=== PATIENT | female | born 1980 | race Caucasian/White ===

== ENCOUNTER 2017-08-16 18:33 | Emergency (ER) | payer MEDICAID ==
[2017-08-16 18:39] VITALS: PULSE 60; TEMP 97.5
--- NOTE | 2017-08-16 18:49 | EDPHY ---
H & P Stated Complaint: right 5th toe injury with deformity Source: Patient Exam Limitations: No limitations - Personal History LMP (Females 10-55): 15-21 Days Ago Current Tetanus Diphtheria and Acellular Pertussis (TDAP): Yes - Medical/Surgical History Hx Asthma: No Hx Chronic Respiratory Disease: No Hx Diabetes: No Hx Cardiac Disease: No Hx Renal Disease: No Hx Cirrhosis: No Hx Alcoholism: No Hx HIV/AIDS: No Hx Splenectomy or Spleen Trauma: No Other PMH: denies - Social History Smoking Status: Never smoked Time Seen by Provider: 08/16/17 18:49 HPI/ROS: HPI: This is a 36-year-old female presents with Chief Complaint: right 5th toe injury with deformity Location: Right 5th toe Quality: Injury Duration: 30 minutes prior to arrival Signs and Symptoms: No bleeding, no radiation, no numbness, no weakness, no tingling, no incontinence, + decreased range of motion, + deformity Timing: Acute Severity: Moderate Context: Patient was walking around her house barefoot and stepped her right little toe on the bedpost. She felt immediate pain and when she looked down she noticed that it was deviated laterally. She states that the pain has lessened, and is now disc [id number]. She was able to drive herself to an urgent care where they took an x-ray that showed a 5th proximal phalanx fracture and dislocation. Patient reports she was told that they were unable to treat her and she was to go to the emergency room. Patient drove self to the emergency room. Modifying Factors: See HPI Comment: ROS: see HPI Constitutional: No fever, no chills, no weight loss Eyes: No blurred vision Respiratory: No shortness of breath, no cough Cardiovascular: No chest pain Gastrointestinal: No nausea, no vomiting no diarrhea Genitourinary: No dysuria Extremities: No myalgias Neurologic: No weakness, no numbness Skin: No rashes Hematologic: No bruising, no bleeding MEDICAL/SURGICAL/SOCIAL HISTORY: Medical history: Generally healthy. Does not take any regular medications. 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 Tympanic membranes clear. Oropharynx clear, no exudate and moist pink mucosa. Airway patent. No lymphadenopathy. No meningismus. Cardiovascular: Normal S1/S2, regular rate, regular rhythm, without murmur rub or gallop. PULMONARY/CHEST: Symmetrical and nontender. Clear to auscultation bilaterally. Good air movement. No accessory muscle usage. ABDOMEN: Soft, nondistended, nontender, no rebound, no guarding, no peritoneal signs, no masses or organomegaly. No CVAT. EXTREMITIES: 2/2 pedal pulses, Right Foot: Plantar flexion to 50, dorsiflexion to 20. Foot inversion to 35 degree. Fifth MTP joint swelling and laterally deviated. Light touch sensation intact. Achilles tendon intact. no deformities, no clubbing, no cyanosis or edema. NEUROLOGICAL: no focal neuro deficits. GCS 15. SKIN: Warm and dry, no erythema. no rash. Good capillary refill. (Sophie Landers) Constitutional: Initial Vital Signs Temperature (C) 36.4 C 08/16/17 18:35 Heart Rate 60 08/16/17 18:35 Respiratory Rate 17 08/16/17 18:35 Blood Pressure 135/75 H 08/16/17 18:35 O2 Sat (%) 98 08/16/17 18:35 O2 Delivery Mode Room Air Allergies/Adverse Reactions: No Known Allergies Allergy (Verified 08/17/15 08:51) Home Medications: Medication Instructions Recorded NK [No Known Home Meds] 08/17/15 Medical Decision Making - Diagnostics Imaging Results: Imaging Impressions Foot X-Ray 08/16/17 18:41 Impression: There has been some improvement in the alignment following closed reduction of the fifth digit proximal phalanx where there is a obliquely- oriented fracture through the mid-shaft with some residual medial apex angular deformity. Procedures: Procedure: Dislocation reduction. A 5th toe digital block was performed in the usual manner using aseptic technique. The dislocation of the right 5th toe was reduced using counter traction technique technique without complications. Post reduction the patient' s neurovascular exam is normal. Post reduction x-ray demonstrates moderate reduction of the joint to the anatomic position. The procedure was performed by myself. (Sophie Landers) ED Course/Re-evaluation: Post reduction x-ray ordered and shows improvement in alignment following reduction of the 5th digital proximal phalanx fracture, continue mild angular deformity noted Fourth and 5th toes were marie taped. Patient declined orthotic shoe. Prefers to wears flip flops. No signs of neurovascular compromise/tenting of skin/compartment syndrome/ extremities and joints examined above and below area of concern and are neurovascularly intact. (Sophie Landers) Differential Diagnosis: Differential diagnosis includes but is not limited to fracture, dislocation, nerve injury, ligament injury, contusion. (Sophie Landers) Other Provider: PHYSICIAN DOCUMENTATION: The patient was evaluated and managed by the Physician Contracts Paralegal. My co- signature indicates that I have reviewed this chart and I agree with the findings and plan of care as documented. I am the secondary supervising physician. (Rafael Barajas) Departure - Departure Disposition: Home, Routine, Self-Care Clinical Impression: Dislocation of fifth toe, right, closed Qualifiers: Encounter type: initial encounter Qualified Code(s): S93.104A - Unspecified dislocation of right toe(s), initial encounter Condition: Good Instructions: Toe Fracture (ED), Finger Dislocation (ED) Additional Instructions: Please avoid any strenuous physical activity until seen for follow up with Orthopedics. Keep your 4th and 5th toes marie-taped for the next several weeks. Take ibuprofen 600 mg every 6-8 hours with food as needed for pain and inflammation. Apply ice for 30 minutes at a time; 2-3 times per day for the next 1-2 days. Follow up with Orthopedics in 7-10 days at which time they will evaluate and recommend with you if conservative management versus surgery is indicated. Referrals: Mely Mcmahan MD [Primary Care Provider] - As per Instructions Obed Camacho MD [Medical Doctor] - As per Instructions
[2017-08-16 19:53] VITALS: BP 128/70; RESP 16; O2SAT 99
== END 2017-08-16 19:50 | disposition home or self-care (01) ==
PROC: 0SSPXZZ Reposition Right Toe Phalangeal Joint, External Approach (ICD-10-PCS; principal; 2017-08-16)
DX: S93.114A Dislocation of interphalangeal joint of right lesser toe(s), initial encounter (principal); W22.8XXA Striking against or struck by other objects, initial encounter; Y99.8 Other external cause status